=== PATIENT | male | born 1960 | race Caucasian/White ===

== ENCOUNTER 2018-07-05 14:20 | Emergency (ER) | payer MEDICAID ==
[~2018-07-05] VITALS: Ht 167.6 cm; Wt 69.8 kg
[~2018-07-05 14:20] MED LIST: ASPI-535 PO; METF500T3 PO
[2018-07-05 14:24] VITALS: Ht 167.6 cm; Wt 69.8 kg
--- NOTE | 2018-07-05 19:37 | ERD ---
ER Documentation Chief Complaint Chief Complaint Complains of a headache with elevated blood pressure hx of HTN HPI This is a 58-year-old man complaining of headache palpitations and elevated blood pressure. Patient does have a history of anxiety and states he has had similar episodes in the past. Symptoms lasted for about 3 hours and improved while in the ER. He denies slurred speech, no weakness in his arms or legs, no chest pain, no vomiting or diarrhea ROS All systems reviewed and are negative except as per history of present illness. Medications Home Meds Reported Medications Aspirin Ec (Aspir 81) 81 Mg Tablet.dr, 81 MG PO DAILY 06/18/12 Metformin* (Glucophage* XR) 500 Mg Tab.sr.24h, 500 MG PO DAILY 09/28/11 Allergies Allergies: Coded Allergies: No Known Allergy (Unverified , 07/05/18) PMhx/Soc Hypertension, anxiety, depression History of Surgery: No Anesthesia Reaction: No Hx Neurological Disorder: No Hx Respiratory Disorders: No Hx Cardiac Disorders: Yes (HTN) Hx Psychiatric Problems: No Hx Miscellaneous Medical Probl: Yes (DM) Hx Alcohol Use: No Hx Substance Use: No Hx Tobacco Use: No FmHx Family History: No diabetes Physical Exam Vitals Vital Signs Date Temp Pulse Resp B/P (MAP) Pulse Ox O2 O2 Flow FiO2 Time Delivery Rate 07/05/18 85 17 126/83 100 Room Air 21:00 (97) 07/05/18 99.2 105 19 157/84 100 Room Air 19:50 (108) 07/05/18 107 20 178/89 98 Room Air 19:05 (118) 07/05/18 99.6 125 20 191/101 99 14:24 (131) Physical Exam GENERAL: Well-developed, well-nourished, appears anxious, afebrile HEENT: Moist mucous membranes, pink conjunctiva, no cervical spine tenderness or step-off deformities, no goiter, no jaundice or icterus, extraocular movements intact without pain. No submandibular induration, and no pharyngeal erythema NEURO: Alert and oriented 3, cranial nerves II through XII intact bilaterally, pupils equal round reactive to light, no focal deficits or facial asymmetry, sensation intact distally Strength 5/5 in upper and lower extremities bilaterally CARDIAC: Tachycardic and regular, no murmurs rubs or gallops LUNGS: Clear bilaterally no wheezing crackles or stridor ABDOMEN: Soft nontender, no guarding, no rigidity, no rebound, no psoas sign no obturator sign. Normoactive bowel sounds SKIN: Warm and dry to touch, no abrasions, contusions, or hematomas, no lacerations, no ecchymosis, no target lesions, and without ulcers EXTREMITIES: No clubbing cyanosis or edema, calves are bilaterally symmetrical, no Homans sign, no popliteal cord sign. Distal pulses equal and bilateral PSYCH: Anxious appearing Result Diagram: 07/05/18195207/05/181952 Results 24 hrs Laboratory Tests Test 07/05/18 19:53 White Blood Count 10.4 10^3/ul Red Blood Count 4.35 10^6/ul Hemoglobin 12.8 g/dl Hematocrit 37.1 % Mean Corpuscular Volume 85.3 fl Mean Corpuscular Hemoglobin 29.4 pg Mean Corpuscular Hemoglobin Concent 34.5 g/dl Red Cell Distribution Width 13.2 % Platelet Count 183 10^3/UL Mean Platelet Volume 9.7 fl Immature Granulocytes % 0.300 % Neutrophils % 73.3 % Lymphocytes % 21.3 % Monocytes % 4.8 % Eosinophils % 0.1 % Basophils % 0.2 % Nucleated Red Blood Cells % 0.0 /100WBC Immature Granulocytes # 0.030 10^3/ul Neutrophils # 7.6 10^3/ul Lymphocytes # 2.2 10^3/ul Monocytes # 0.5 10^3/ul Eosinophils # 0.0 10^3/ul Basophils # 0.0 10^3/ul Nucleated Red Blood Cells # 0.0 10^3/ul Sodium Level 132 mmol/L Potassium Level 4.0 mmol/L Chloride Level 95 mmol/L Carbon Dioxide Level 22 mmol/L Anion Gap 15 Blood Urea Nitrogen 10 mg/dl Creatinine 0.69 mg/dl Est Glomerular Filtrat Rate mL/min > 60 mL/min Glucose Level 144 mg/dl Calcium Level 10.0 mg/dl Total Bilirubin 0.7 mg/dl Direct Bilirubin 0.00 mg/dl Indirect Bilirubin 0.7 mg/dl Aspartate Amino Transf (AST/SGOT) 46 IU/L Alanine Aminotransferase (ALT/SGPT) 50 IU/L Alkaline Phosphatase 103 IU/L Troponin I < 0.012 ng/ml Total Protein 8.6 g/dl Albumin 4.7 g/dl Globulin 3.90 g/dl Albumin/Globulin Ratio 1.20 Lipase 159 U/L Current Medications Medications Dose Sig/Ever Start Time Status Last (Trade) Ordered Route PRN Stop Time Admin Dose Reason Admin Lorazepam 0.5 mg ONCE ONCE 07/05/18 DC 07/05/18 (Ativan) IV 20:00 07/05/18 20:05 20:01 Lactated 1,000 ml @ Q1H STAT 07/05/18 DC 07/05/18 Ringer's 1,000 mls/hr IV 19:40 07/05/18 20:05 20:39 Ketorolac 15 mg ONCE STAT 07/05/18 DC 07/05/18 Tromethamine IV 19:40 07/05/18 20:05 (Toradol) 19:41 Procedures/MDM IV line was established patient was placed on cafeteria monitor rhythm strip revealed a sinus tachycardia at 110 bpm with upright P and T waves. Patient was afebrile EKG performed, read by me revealed a sinus tachycardia at 100 bpm, normal axis, narrow QRS complex, no concerning ST elevations or depressions noted I administered 1 L LR IV x1, Toradol 15 mg IV, lorazepam 0.5 mg IV x1 CBC and electrolytes are normal, liver function tests normal, troponin negative Chest X-ray 1V Interpreted by me: Soft Tissue: No acute abnormalities Bones: No acute abnormalities Mediastinum/Cardiac Silhouette/Lungs: No acute abnormalities Differential diagnoses considered, included but not limited to acute coronary syndrome, pulmonary embolism, aortic dissection, abdominal aortic aneurysm, sepsis, stroke, meningitis, encephalitis, pneumonia, appendicitis, cholecystitis, bowel obstruction, pyelonephritis, nephrolithiasis, cystitis, as well as metabolic, hematologic, and electrolyte abnormalities. As well as abscess, cellulitis, fractures, and dislocations. Patient feels much better at this time, and vital signs are normal, symptoms have improved. I did give strict instructions to return to the ED if symptoms continue or worsen, patient will otherwise follow-up with primary care physician. Patient understood instructions and agreed to plan. Disclaimer: Inadvertent spelling and grammatical errors are likely due to EHR/d ictation software use and do not reflect on the overall quality of patient care. Also, please note that the electronic time recorded on this note does not necessarily reflect the actual time of the patient encounter. Departure Diagnosis: Primary Impression: Hypertension Hypertension type: essential hypertension Qualified Codes: I10 - Essential (primary) hypertension Additional Impressions: Palpitations Headache Headache type: tension-type Headache chronicity pattern: acute headache Intractability: not intractable Qualified Codes: G44.209 - Tension-type headache, unspecified, not intractable Condition: Good CHICHO LOCKWOOD MD July 05, 2018 19:37
[2018-07-05] MEDS ORDERED: LACTATED RINGER'S 1,000 ML IV STA (19:40)
[2018-07-05] MEDS ORDERED: KETOROLAC 15 MG INJ IV STA (19:40)
[2018-07-05] MEDS ORDERED: LORAZEPAM 2 MG INJ IV ONE (20:00)
[2018-07-05 21:00] VITALS: BP 126/83; PULSE 85; RESP 17
== END 2018-07-05 21:18 | disposition home or self-care (01) ==
LOC: E/R 14:20
DX: I10 Essential (primary) hypertension (principal); R00.2 Palpitations; G44.209 Tension-type headache, unspecified, not intractable; E11.9 Type 2 diabetes mellitus without complications; Z79.82 Long term (current) use of aspirin; Z79.84 Long term (current) use of oral hypoglycemic drugs
CPT/HCPCS: 36415; 71045; 80053; 83690; 84484; 85025; 93005; 96374; 96375; J1885; J2060; J7120; Z7502; Z7610